=== PATIENT | male | born 1990 | race American Indian/Alaskan Native ===

== ENCOUNTER 2024-08-01 20:02 | Emergency (ER) | payer MEDICAID, SELFPAY ==
[2024-08-01] VITALS (9 sets, daily range): BP systolic 124–148; BP diastolic 69–86; PULSE 67–99; RESP 13–20; TEMP 36.7–37.2; O2SAT 95–100; BMI 21.9
--- NOTE | 2024-08-01 20:24 | XR_ITS ---
EXAMINATION: Ankle, left 3 views . Technique: Ankle AP, oblique, lateral 3 views Date and time of exam: August 01, 20242024 hrs. Indications: Injury to the ankle today, ankle pain and deformity Findings: Ankle dislocation, distal articulating surface tibia displaced laterally and anteriorly relative to the dome of the talus No acute fracture depicted Impression: Ankle dislocation
--- NOTE | 2024-08-01 21:13 | EDNOTE_ITS ---
Lower Extremity Injury RME/HPI General Chief Complaint: Extremity Injury, Lower Stated Complaint: LEFT ANKLE PAIN Time Seen by Provider: 08/01/24 21:06 Arrival date/time: 08/01/24 20:02 RME / HPI RME / HPI Narrative: Dr. Carolina?s Main ED Evaluation: Patient is a 34-year-old male with no significant medical history who is presenting to the emergency department via EMS with left ankle injury. Patient states that he was playing basketball when he went up for a lay up and came down landing on friend's foot. Denies any head strikes or loss of consciousness. Related Data Previous Rx's ?Medication ?Instructions ?Recorded hydrocodone 5 mg-acetaminophen 325 1 tab PO BID PRN pain #10 tabs 08/01/24 mg tablet Allergies Allergy/AdvReac Type Severity Reaction Status Date / Time Penicillins Allergy Unknown RASH Verified 04/02/19 14:34 Review of Systems Review of Systems Systems Reviewed: All systems reviewed, normal except as documented Past Medical History Past Medical History NEUROLOGIC: Negative Neurological Disorders or Seizures CARDIAC: Negative Cardiac Disorders or Congestive Heart Failure RESPIRATORY: Negative Chronic Obstructive Pulmonary Disease (COPD) GASTROINTESTINAL: Negative Gastrointestinal Disorders or Hepatitis GENITOURINARY: Negative Genitourinary Disorders or Renal Disease REPRODUCTIVE: Negative Testicular Cancer MUSCULOSKELETAL: Negative Musculoskeletal Disorders ENDOCRINE: Negative Endocrine Disorders, Diabetes Mellitus Type 1 or Diabetes Mellitus Type 2 HEMATOLOGIC: Negative Blood Disorders OTHER HISTORY: Positive Chicken Pox; Negative Autoimmune Disease, Falls, Blood Transfusions, Blood Transfusion Reaction, Anesthesia Reactions, MRSA, Clostridium Difficile, Cancer or Testicular Cancer Family History FAMILY HISTORY: Negative Family Psychiatric Problems, Family Respiratory Disorders, Family Cardiac Disorders, Family Gastrointestinal Problems, Family Cancer, Family Surgery or Family Anesthesia Reaction Surgical History SURGICAL: Negative Vasectomy Social History SMOKING STATUS: Never smoker ED Exam Narrative Physical exam: GENERAL APPEARANCE: alert and oriented x 4, well-developed, well-nourished, no acute distress VITALS: All vitals were reviewed and the pulse ox is 95% on room air, which is normal according to my interpretation. HEENT: Normocephalic, atraumatic; pupils equal, round, reactive to light; EOMI; mucous membranes pink, moist; oropharynx clear NECK: Supple LUNGS: CTABL; no wheezes, no rales, no rhonchi HEART: Regular rate, regular rhythm; normal S1, S2; no murmurs ABDOMEN: non distended; normal BS; soft, no tenderness, no guarding, no rebound; no masses, no organomegaly, no hernia BACK: no CVA tenderness EXTREMITIES: left foot is inverted and deformed (medially angulated left ankle joint with obvious dislocation) with 2 small open wounds (1 is a 3cm abrasion, the second is a 1 cm lenticular shaped laceration), good sensations distally and good motor of the toes bilaterally, cap refill is less than 2 seconds, no edema NEUROLOGIC: awake; alert and oriented x4; cranial nerves II-XII grossly intact; no focal sensory or motor deficits PSYCHIATRIC: appropriate mood and affect SKIN: warm, dry, normal color; no rashes Course Quality Measures none Orders Category Date Time Status Extrusion Press Adjuster Q4H START 00 Care 08/01/24 21:15 Active Conscious Sedation [RT Stand By for Procedure] NOW Care 08/01/24 22:14 Active Continuous Pulse Oximetry NOW Care 08/01/24 21:17 Completed Crutches .NOW Care 08/01/24 21:19 Active IV [Insert IV] NOW Care 08/01/24 21:15 Active Procedural Sedation NOW Care 08/01/24 22:12 Completed Splint / Immobilizer STAT Care 08/01/24 21:19 Active XR ankle LT 2V Stat Exams 08/01/24 22:56 Completed XR ankle comp LT min 3V Stat Exams 08/01/24 20:24 Completed CBC Stat Lab 08/01/24 22:10 Completed Comprehensive Metabolic Panel Stat Lab 08/01/24 22:10 Received Free T4 (Free Thyroxine) Stat Lab 08/01/24 22:10 Received Thyroid Stimulating Hormone Stat Lab 08/01/24 22:10 Received Clindamycin/Ns 600 mg Ivpb [Cleocin/Ns Ivpb] Med 08/01/24 21:18 Discontinued 600 mg in 50 ml IV X1 Etomidate Inj [Amidate Inj] Med 08/01/24 21:19 Discontinued 20 mg IVP X1 ONE Ondansetron Inj [Zofran Inj] Med 08/01/24 21:15 Discontinued 4 mg IV X1 ONE fentaNYL INJ [Sublimaze Inj] Med 08/01/24 22:33 Discontinued 100 mcg .ROUTE .STK-MED ONE fentaNYL INJ [Sublimaze Inj] Med 08/01/24 22:36 Active 100 mcg IVP PRN PRN fentaNYL INJ [Sublimaze Inj] Med 08/01/24 21:15 Discontinued 50 mcg IVP X1 ONE Vital Signs Vital signs: Vital Signs Temperature 98.9 F 08/01/24 20:06 Pulse Rate 81 08/01/24 20:06 Respiratory Rate 18 08/01/24 20:06 Blood Pressure 148/82 H 08/01/24 20:06 Pulse Oximetry (%) 98 08/01/24 20:06 Oxygen Delivery Method Room Air 08/01/24 20:06 Procedures -ED Orthopedic Joint Reduction Joint #1: Time Out Performed: Yes Side: Left Joint Reduction Location: ankle Analgesia: procedural sedation Technique used: traction/counter-traction Post-reduction neuro exam: intact and no change Post-reduction vascular: intact and no change Post Reduction X-Ray Obtained: Yes Post Reduction X-Ray Results: reduced Splint Applied: Yes Patient Tolerated Procedure: well and no complications Procedural Sedation Indication: fracture/dislocation reduction Presedation Evaluation: Patient is alert and oriented x4, talking in full sentences. Preparation: cyber policy and strategy planner applied, pulse oximeter, supplemental O2 applied, reversal agents at bedside, suction/airway equipment at bedside and IV secured Fentanyl: IV Fentanyl dose (mcg): 50 IV Etomidate dose (mg): 20 Patient Tolerated Procedure: well and no complications Extremity Injury, Lower MDM Narrative MDM Narrative:: He has left foot inverted and he has a big deformity there. There are 2 small open wounds, 1 of which is a 3 cm abrasion the other 1 looks like a 1 cm lenticular shaped laceration. He has good sensation distally, he has good motor with the toes, less than 2-second cap refill. No tingling or numbness. No other injuries on exam On exam the patient has a very much medially angulated left ankle joint with obvious dislocation. Small overlying lenticular shaped laceration. Otherwise completely intact Films show a dislocation. Will reduce Patient data External records reviewed:: [facility] previous records (Per chart review, patient has no relevant previous ED visits or admissions to this facility.) Clinical information provided by:: patient Social determinants that could affect healthcare access:: none Patient has the following chronic illnesses:: none How is presenting disease/condition affected by chronic disease/condition?: no chronic disease Evaluation data The following diagnostics were reviewed and interpreted by me:: lab results and radiology exam(s) Lab and/or radiology exams considered but not ordered:: none Interpretation Summary: [facility] Report Signed Patient: BARRERA GATICA. Record#: [id number] Birthdate: 1990 Age/Sex: 34 / M Location: [facility] Attending Dr: Ordering Physician: Jose Carolina MD Date of Service: 08/01/24 Procedure(s): XR ankle comp LT min 3V Accession Number(s): [id number] cc: Primo Mancilla MD; Jose Carolina MD~ EXAMINATION: Ankle, left 3 views . Technique: Ankle AP, oblique, lateral 3 views Date and time of exam: August 01, 20242024 hrs. Indications: Injury to the ankle today, ankle pain and deformity Findings: Ankle dislocation, distal articulating surface tibia displaced laterally and anteriorly relative to the dome of the talus No acute fracture depicted Impression: Ankle dislocation Dictated By: Primo Mancilla MD Signed By: <Electronically signed by Primo aMncilla MD in OV> 08/01/242033 ------ [facility] Report Signed Patient: BARRERA GATICA. Record#: [id number] Birthdate: 1990 Age/Sex: 34 / M Location: [facility] Attending Dr: Ordering Physician: Jose Carolina MD Date of Service: 08/01/24 Procedure(s): XR ankle LT 2V Accession Number(s): [id number] cc: Primo Mancilla MD; SEAMUS ROSS; Jose Carolina MD~ Examination: Left ankle 2 views Technique one AP lateral left ankle 2 views Exam date and time: August 01, 2024 11:01 PM Comparison August 01, 20242026 hrs. Indications: Ankle dislocation today post reduction Findings: Successful reduction ankle dislocation No fracture Impression: Successful reduction ankle dislocation Dictated By: Primo Mancilla MD Signed By: <Electronically signed by Primo Mancilla MD in [place]> 08/01/24 2932 Medications / Prescriptions Medications or Prescriptions considered but not ordered:: none Medication administrations:: Medication Administration History Fentanyl Citrate (Fentanyl Cit Inj 50 Mcg/Ml Amp 2ml) 100 mcg IVP PRN PRN PRN Reason: PAIN Stop: 08/06/24 22:35 Last Admin: 08/01/24 22:39 Dose: 50 mcg Documented By: DB Comments: Per Dr. Carolina only give 50mcg Discontinued Medications Etomidate (Etomidate Inj 2 Mg/Ml Vial 10 Ml) 20 mg IVP X1 ONE Stop: 08/01/24 21:20 Last Admin: 08/01/24 22:42 Dose: 20 mg Documented By: DB Fentanyl Citrate (Fentanyl Cit Inj 50 Mcg/Ml Amp 2ml) 50 mcg IVP X1 ONE Stop: 08/01/24 21:16 Last Admin: 08/01/24 21:42 Dose: 50 mcg Documented By: CCT Fentanyl Citrate (Fentanyl Cit Inj 50 Mcg/Ml Amp 2ml) Confirm Administered Dose 100 mcg .ROUTE .STK-MED ONE Stop: 08/01/24 22:34 Last Admin: 08/01/24 22:58 Dose: Not Given Documented By: DB Non-Admin Reason: Duplicate Medication on eMAR Clindamycin/Sodium Chloride (Cleocin/Ns Ivpb) 600 mg in 50 mls @ 100 mls/hr IV X1 ONE Stop: 08/01/24 21:47 Last Infusion: 08/01/24 22:17 Dose: Infused Documented By: Admin: 08/01/24 21:42 Dose: 100 mls/hr Documented By: CCT Ondansetron HCl (Ondansetron Inj 2 Mg/Ml Inj 2 Ml) 4 mg IV X1 ONE; Protocol Stop: 08/01/24 21:16 Last Admin: 08/01/24 21:42 Dose: 4 mg Documented By: CCT see above Consultations Consultation(s) initiated? (list below): No Diagnosis Extremity Injury, Lower Differential Diagnosis: other (fracture, dislocation, contusion) Most likely diagnosis given after review of the tests above:: see below Admission Indicated Admission indicated?: not indicated Admission Request Was there a request for admission?: No Disposition Plan Disposition Plan: Discharge Discharge Attestation Discharge Attestation: The patient and all family members were given an opportunity to ask questions and understood the discharge instructions. Discharge instructions specifically effects, indications for sooner follow up or return to the emergency department, and the expected course of current diagnosis. Patient condition: Stable Discharge Plan Plan Patient Disposition: HOME (Self Care) Disposition Comment: stable for discharge Patient condition on transfer: Stable Prescriptions/Referrals Prescriptions/Med Rec: New hydrocodone-acetaminophen 5-325 mg tablet 1 tab PO BID MDD 2 PRN (Reason: pain) Qty: 10 0RF Referrals: Lucian Figueroa MD [Physician] - In 1 week Seamus Ross PA-C [Primary Care Provider] - In 1 week Problem List Clinical Impression: Ankle dislocation Patient/Caregiver Discharge Instructions Discharge Activity: activity as tolerated Other Activity Instructions:: Use crutches and avoid extraneous activity Education Materials: ED Ankle Dislocation (Adult), ED Joint Dislocation Additional Instructions: Return to the emergency department for any worsening or any further medical problems You should follow-up with Dr. Figueroa within the next week. He is the orthopedic surgeon with a bone specialist. Follow-up with your primary care doctor within the next several days Do not drive while you are taking the pain medication Print Language: Romanian Stand Alone Forms: [facility] Award Info., Patient Portal Info Letter
[2024-08-01] MEDS: fentaNYL CIT INJ 50 mCg/ML AMP 2ML IVP (21:42)
[2024-08-01] MEDS: CLINDAMYCIN/NS 600 MG IVPB 600 MG/50 ML BAG 100 MG IV (21:42)
[2024-08-01] MEDS: ONDANSETRON INJ 2 MG/ML INJ 2 ML 4 MG IV (21:42)
[2024-08-01] MEDS: fentaNYL CIT INJ 50 mCg/ML AMP 2ML 100 MCG IVP (22:39)
[2024-08-01] MEDS: ETOMIDATE INJ 2 MG/ML VIAL 10 ML 20 MG IVP (22:42)
--- NOTE | 2024-08-01 22:56 | XR_ITS ---
Examination: Left ankle 2 views Technique one AP lateral left ankle 2 views Exam date and time: August 01, 2024 11:01 PM Comparison August 01, 20242026 hrs. Indications: Ankle dislocation today post reduction Findings: Successful reduction ankle dislocation No fracture Impression: Successful reduction ankle dislocation
--- NOTE | 2024-08-01 23:30 | PD.EDADDENDU ---
Emergency Room Addendum Addendum Narrative: Dr. Carolina requests narcotic RX sent and so done because his electronic sending hasn't been completed yet.
[2024-08-01 23:38] LABS: Basophils # (Auto) 0.1 Thou/mm3 (0.0-0.2); Basophils % (Auto) 1 % (0-2.5); Eosinophils % (Auto) 0 % (0-10); Hematocrit 41.2 % (41.0-53.0); Hemoglobin 14.3 g/dL (13.5-16.0); Immature Granulocytes % (Auto) 0 % (0-0); Immature Granulocytes Auto 0.03 Thou/mm3 (0.00-0.00); Lymphocytes % (Auto) 19 % (10-50); Mean Corpuscular HGB Conc 34.7 g/dl (31.0-37.0); Mean Corpuscular Hemoglobin 30.5 pg (25.0-35.0); Mean Corpuscular Volume 88 fL (80-100); Monocytes # (Auto) 0.6 Thou/mm3 (0.0-0.8); Monocytes % (Auto) 6 % (0-12); Neutrophils # (Auto) 7.5 Thou/mm3 (1.8-7.7); Neutrophils % (Auto) 73 % (37-80); Nucleated Red Blood Cell % 0 /100 WBC (0); Platelet Count 258 Thou/mm3 (140-440); RDW Standard Deviation 40.5 fL (35.1-43.9); Red Blood Count 4.69 Miln/mm3 (4.50-5.90); White Blood Count 10.2 Thou/mm3 (3.8-10.6)
[2024-08-02 00:01] LABS: Alanine Aminotransferase 15 U/L (10-49); Albumin, Serum 4.6 gm/dL (3.5-5.0); Albumin/Globulin Ratio 2.2 (1.2-2.2); Alkaline Phosphatase 92 U/L (46-116); Anion Gap 5 (7-16); Aspartate Amino Transferase 23 U/L (0-34); BUN/Creatinine Ratio 15 Ratio (12-20); Bilirubin,Total 0.7 mg/dL (0.3-1.2); Blood Urea Nitrogen 15 mg/dL (9-23); Carbon Dioxide 27.6 mMol/L (20.0-31.0); Chloride 107 mMol/L (98-107); Estimated Creatinine Clearance 119.1 mL/min (>60); Globulin 2.1 gm/dL (2.3-3.5); Glucose 104 mg/dL (74-106); Osmolality,Calculated 280 (275-295); Potassium 3.8 mMol/L (3.4-5.1); Sodium 140 mMol/L (136-145); Thyroid Stimulating Hormone 2.73 uIU/mL (0.55-4.78); Total Protein 6.7 gm/dL (5.7-8.2); eGFR > 60 See Note
[2024-08-02 00:25] VITALS: BP 125/70; PULSE 66; RESP 18; TEMP 36.9; O2SAT 97
== END 2024-08-02 00:25 | disposition home or self-care (01) ==
PROVIDERS: Emergency Provider Emergency Medicine; PCP Physician Assistant
DX: S93.05XA Dislocation of left ankle joint, initial encounter (principal); X58.XXXA Exposure to other specified factors, initial encounter; Y93.67 Activity, basketball
CPT/HCPCS: 27840; 36415; 73600; 73610; 80053; 84439; 84443; 85025; 96365; 96375; 99285; J2405; J3010; J3490; S0077; J0737

== ENCOUNTER → 2024-08-31 | Outpatient (CLI) | payer MEDICAID, SELFPAY ==
--- NOTE | 2024-08-31 08:17 | XR_ITS ---
EXAMINATION: Ankle, left 3 views . Technique: Ankle AP, oblique, lateral 3 views Date and time of exam: August 31, 2024 0846 hours INDICATIONS: Injury to the: August 01, 2024 with ankle pain. FINDINGS: Mild lateral malleolar soft tissue swelling No ankle fracture or dislocation IMPRESSION: No ankle fracture or dislocation
== END | disposition home or self-care (01) ==
PROVIDERS: PCP Physician Assistant; Referring Provider Physician Assistant; Visit Provider Physician Assistant
DX: S93.05XD Dislocation of left ankle joint, subsequent encounter (principal); X58.XXXD Exposure to other specified factors, subsequent encounter
CPT/HCPCS: 73610

== ENCOUNTER → 2024-11-09 | Outpatient (CLI) | payer MEDICAID, SELFPAY ==
--- NOTE | 2024-11-09 07:30 | XR_ITS ---
Examination: MRI left ankle, without contrast Date and time of exam: November 09, 2024 0736 hours INDICATIONS: Basketball injury to the ankle July 2024 ankle dislocation persistent ankle pain Technique: Multiple axial sagittal and coronal images of the left ankle have been obtained with the Siemens high-resolution 1.5 Tiny MRI scanner. Images obtained include T2-weighted fat-suppressed sagittal sections, TR 3500, TE 46, T2 weighted coronal fat suppressed images, TR 3050, TE 84, T2-weighted transverse fat suppressed images, TR 3260, TE 63, proton density transverse images, TR 4720 TE 46, and T1 weighted coronal images, TR 560, TE 13. Findings: Mild biconvex thickening of the Achilles tendon Bone contusion medial malleolus and upper surface of the talus No ankle dislocation currently Suspicious for microtrabecular fracture lines medial malleolus Anterior posterior inferior tibiofibular ligaments intact Moderate strain anterior talofibular ligament Flexor tendons extensor tendons intact IMPRESSION: Recommend CT scan ankle without contrast follow-up to confirm microtrabecular fracture lines medial malleolus Bone contusion medial malleolus and upper surface of the talus Moderate strain anterior talofibular ligament
== END | disposition home or self-care (01) ==
PROVIDERS: PCP Physician Assistant; Referring Provider Otolaryngology; Visit Provider Otolaryngology
DX: S90.02XA Contusion of left ankle, initial encounter (principal); S99.812A Other specified injuries of left ankle, initial encounter; X58.XXXA Exposure to other specified factors, initial encounter
CPT/HCPCS: 73721